=== PATIENT | female | born 1965 | race Caucasian/White ===

== ENCOUNTER → 2022-03-09 | Outpatient (CLI) | payer MEDICAID, OTHER | LOC: RAD 07:30 | PROVIDERS: ATTEND Surgery | DX: Z12.31 Encounter for screening mammogram for malignant neoplasm of breast (principal) | CPT/HCPCS: 77063; 77067 ==

== ENCOUNTER → 2022-03-24 | Outpatient (CLI) | payer OTHER ==
[~2022-03-24] VITALS: Ht 170.2 cm; Wt 75.3 kg
[~2022-03-24] MED LIST: ACTI200C PO; MAGN400T39 PO
== END ==
LOC: PREOP 06:12
PROVIDERS: ATTEND Surgery
DX: Z01.818 Encounter for other preprocedural examination (principal)

== ENCOUNTER 2022-03-31 10:31 | Day surgery (SDC) | payer OTHER ==
[~2022-03-31] VITALS: Ht 170 cm; Wt 75.3 kg
[2022-03-31] MEDS ORDERED: LACTATED RINGERS 1,000 ML IV STA (10:35)
[2022-03-31] MEDS ORDERED: LIDOCAINE JELLY 2% 6 ML SYRINGE MM PRN (10:45)
[2022-03-31] MEDS ORDERED: HURRICAINE EXT TUBE (BENZOCAINE) XX PRN (10:45)
[2022-03-31 10:55] VITALS: BP 110/77
--- NOTE | 2022-03-31 11:07 | Progress Note-Pre Operative ---
Pre-Operative Progress Note Date of Available H&P: Mar 31, 2022 Date H&P Reviewed: Mar 31, 2022 Time H&P Reviewed: 11:00 History & Physical: No changes noted Pre-Operative Diagnosis: screening o ANDREW ALFREDO MD Mar 31, 2022 11:06
--- NOTE | 2022-03-31 11:08 | Discharge Inst-Surgical ---
D/C Lap Instructions-KIDO New, Converted, or Re-Newed RX: RX on Chart Follow Up Appt in 2 weeks Activity as tolerated High Fiber Diet 25g or more per day Avoid Alcohol, Caffeine, Spicy [place] and Acid foods. Drink 64 fluid oz or more of fluids per day. Symptoms to Report: Fever over 101 degree F, Nausea/Vomiting If any problems/questions: Contact your physician or go to Emergency Room ANDREW ALFREDO MD Mar 31, 2022 11:08
[2022-03-31] MEDS ORDERED: ONDANSETRON 4 MG (ZOFRAN) ORAL DISSOLVE TAB PO PRN ×2 (11:15→13:00)
[2022-03-31] MEDS ORDERED: ONDANSETRON 4 MG/2 ML (SDV) Z0FRAN IVP PRN ×2 (11:15→13:00)
[2022-03-31] MEDS ORDERED: PROPOFOL INJECTION 50 ML IV ONE (12:13)
[2022-03-31] MEDS ORDERED: MIDAZOLAM 2 MG/2 ML (VERSED) VIAL ONE (12:13)
[2022-03-31 12:50] VITALS: BP 112/70
[2022-03-31 12:55] VITALS: BP 97/66
--- NOTE | 2022-03-31 12:58 | Progress Note-Post Operative ---
Post-Operative Progess Note Surgeon (s)/Financial Investment Adviser (s) Surgeon ANDREW ALFREDO MD Financial Investment Adviser: none Pre-Operative Diagnosis screening colo Post-Operative Diagnosis mildc chronic stage 2 ext and int hemorrhoids. Procedure & Operative Findings Date of Procedure 03/31/22 Procedure Performed/Findings colonoscopy Anesthesia Type mac Estimated Blood Loss Estimated blood loss (mL): minimal Specimens/Packing Specimens Removed none ANDREW ALFREDO MD Mar 31, 2022 12:57
[2022-03-31 13:20] VITALS: BP 101/71
--- NOTE | 2022-03-31 13:26 | Anesthesia-General Post-Op ---
MAC Patient Condition Mental Status/LOC: Same as Preop Cardiovascular: Satisfactory Nausea/Vomiting: Absent Respiratory: Satisfactory Pain: Controlled Complications: Absent Post Op Complications Complications None Follow Up Care/Instructions Patient Instructions None needed. Anesthesiology Discharge Order Discharge Order Patient is doing well, no complaints, stable vital signs, no apparent adverse anesthesia problems. No complications reported per nursing. DOROTHY MORSE CRNA Mar 31, 2022 13:26
[2022-03-31 13:30] VITALS: BP 101/71
--- NOTE | 2022-03-31 20:26 | OPERATIVE REPORT ---
DATE OF SERVICE: 03/31/2022 ATTENDING PRIMARY VP PRODUCT MANAGEMENT: Lucía Everett APRN PREOPERATIVE DIAGNOSIS: Screening colonoscopy. POSTOPERATIVE DIAGNOSES: Mild chronic stage II external and internal hemorrhoids. PROCEDURE: Colonoscopy. SURGEON: Andrew Alfredo MD ANESTHESIA: Monitored anesthesia care. ESTIMATED BLOOD LOSS: Minimal. FINDINGS: Mild chronic stage II external and internal hemorrhoids. DISPOSITION: The patient tolerated the procedure well. INDICATIONS: The patient is a 56-year-old female, referred over to us for screening colonoscopy. She has not had a colonoscopy up to this point in her life. She states that for the most part she is doing well, does not report any major issues with diarrhea nor constipation as well as no red blood per rectum nor any dark tarry stools. She does not have any first-degree relatives. She does not report any family history of colon cancer as well. DESCRIPTION OF PROCEDURE: The patient was brought to the endoscopy suite, laid in left lateral decubitus position. After adequate IV pain and sedative medications and monitored anesthesia care, a digital rectal examination was performed. Chronic stage II external and internal hemorrhoids were identified, which were not actively edematous nor inflamed and no bleeding. Normal sphincter tone was felt and there were no palpable masses. The endoscope was then intubated to the anus and rectum gently insufflated. The endoscope was then advanced to the first, second and third portion of esophagus through the valves of [place] of the rectum with no polyps or any neoplasms identified. We then proceeded through the sigmoid colon where no diverticulosis identified. The endoscope was then advanced and remainder of the descending, transverse and ascending colon to the cecum, which were normal. There were no polyps or any neoplasms identified throughout the colon or rectum. The endoscope was then slowly withdrawn while taking a second look and suctioning of residual air with no additional findings. The patient tolerated the procedure well. We will recommend continued medical management with a high fiber diet with at least 30 grams of fiber daily as well as significant amounts of water to promote soft consistency stools on a daily basis. If she is asymptomatic, she does not need another colonoscopy for another 10 years. Job ID: [id number] DocumentID: [id number] Dictated Date: 03/31/2022 12:48:50 Manifold Builder Date: 03/31/2022 20:25:59 Dictated By: ANDREW ALFREDO MD
== END 2022-03-31 13:30 | disposition home or self-care (01) ==
LOC: ENDO 10:31
PROVIDERS: ATTEND Surgery
DX: Z12.11 Encounter for screening for malignant neoplasm of colon (principal); K64.1 Second degree hemorrhoids; K64.4 Residual hemorrhoidal skin tags; Z28.310 Unvaccinated for COVID-19; Z88.2 Allergy status to sulfonamides